=== PATIENT | male | born 1990 | race Asian ===

== ENCOUNTER 2017-05-03 05:55 | Day surgery (SDC) | payer OTHER ==
[~2017-05-03] VITALS: Ht 167.6 cm; Wt 88.6 kg
[~2017-05-03 05:55] MED LIST: ALBU8.5H IH; BECL8.7A5 IH; CETI-260 PO; FLUT16H NASAL; LINA145C PO; MONT10TA21 PO; PANT40TA25 PO; PRED10 PO; PSEU30TA31 PO
[2017-05-03] MEDS ORDERED: BENZOCAINE 20% 50 MCG/SPRAY 57 GM TP ONE (05:56)
[2017-05-03] MEDS ORDERED: LIDOCAINE HCL 2% 30 ML JELLY TP ONE (05:56)
[2017-05-03] MEDS ORDERED: LIDOCAINE HCL 4% 50 ML SOLUTION TP ONE (05:56)
[2017-05-03] MEDS ORDERED: ALBUTEROL SULFATE 2.5 MG/0.5 ML NEB SOLUTION NEB ONE (05:56)
[2017-05-03] MEDS ORDERED: SODIUM CHLORIDE 0.9% 1,000 ML IV ONE ×2 (06:00→06:07)
[2017-05-03] MEDS ORDERED: MOME13HF IH (07:01)
[2017-05-03] MEDS ORDERED: FAMO20 PO (07:01)
[2017-05-03] MEDS ORDERED: FEXO-117 PO (07:01)
[2017-05-03] MEDS ORDERED: FentaNYL CITRATE-PF 100 MCG/2 ML VIAL ONE (07:19)
[2017-05-03] MEDS ORDERED: MIDAZOLAM HCL 2 MG/2 ML VIAL ONE (07:19)
[2017-05-03] MEDS ORDERED: MethylPREDNISolone SOD SUCC 125 MG/2 ML VIAL IVP ONE (08:30)
[2017-05-03] MEDS ORDERED: MethylPREDNISolone SOD SUCC 125 MG/2 ML VIAL ONE (08:49)
[2017-05-03] MEDS ORDERED: OXYGEN THERAPY IH SCH (20:00)
== END 2017-05-03 09:40 | disposition home or self-care (01) ==
LOC: SURGERY 05:55
PROVIDERS: ATTEND Internal Medicine Critical Care Medicine
DX: B37.9 Candidiasis, unspecified (principal); R19.11 Absent bowel sounds
CPT/HCPCS: 31623; 31624; 71010; 87015 ×2; 87070; 87077; 87101; 87205; 87220; 88108; 88312; J2250; J2930; J3010; J7030

== ENCOUNTER 2018-03-28 05:53 | Day surgery (SDC) | payer OTHER ==
[~2018-03-28] VITALS: Ht 167.6 cm; Wt 90.0 kg
[~2018-03-28 05:53] MED LIST changes: -ALBU8.5H IH; +ALBU8.5H8 IH; -BECL8.7A5 IH; -CETI-260 PO; +FAMO20 PO; +FEXO-59 PO; +MOME13HF IH; -PANT40TA25 PO; -PSEU30TA31 PO
[2018-03-28] MEDS ORDERED: LIDOCAINE HCL 4% 50 ML SOLUTION TP ONE (05:54)
[2018-03-28] MEDS ORDERED: LIDOCAINE HCL 2% 30 ML JELLY TP ONE (05:54)
[2018-03-28] MEDS ORDERED: BENZOCAINE 20% 50 MCG/SPRAY 57 GM TP ONE (05:54)
[2018-03-28] MEDS ORDERED: EPINEPHrine 1:1,000 [1 MG/ML] AMP IM ONE (05:54)
[2018-03-28] MEDS ORDERED: SODIUM CHLORIDE 0.9% 1,000 ML IV ONE ×2 (06:00→06:37)
[2018-03-28] MEDS ORDERED: FentaNYL CITRATE-PF 100 MCG/2 ML VIAL ONE (08:10)
[2018-03-28] MEDS ORDERED: MIDAZOLAM HCL 2 MG/2 ML VIAL ONE (08:10)
[2018-03-28] MEDS ORDERED: MethylPREDNISolone SOD SUCC 125 MG/2 ML VIAL IVP ONE (08:45)
[2018-03-28] MEDS ORDERED: OXYGEN THERAPY IH SCH (20:00)
== END 2018-03-28 09:50 | disposition home or self-care (01) ==
LOC: SURGERY 05:53
PROVIDERS: ATTEND Internal Medicine Critical Care Medicine
DX: J38.4 Edema of larynx (principal); B37.0 Candidal stomatitis; J84.111 Idiopathic interstitial pneumonia, not otherwise specified; G47.33 Obstructive sleep apnea (adult) (pediatric); J44.9 Chronic obstructive pulmonary disease, unspecified; J45.998 Other asthma; K21.9 Gastro-esophageal reflux disease without esophagitis; Z79.52 Long term (current) use of systemic steroids; Z91.048 Other nonmedicinal substance allergy status; Z79.899 Other long term (current) drug therapy; Z98.890 Other specified postprocedural states
CPT/HCPCS: 31623; 31624; 71045; 87015; 87070; 87205; 87206; 87220; 88108; 88312; J0171; J2250; J2930; J3010; J7030